=== PATIENT | female | born 1990 | race Caucasian/White ===

== ENCOUNTER → 2016-08-09 | Outpatient (CLI) | payer OTHER ==
[~2016-08-09] MED LIST: IBUP-232 PO; MACR100C2 PO; METR500T10 PO; PARAIUD IL; PREN29TA PO; SENN1TAB PO; SPRI28TA PO
== END ==
LOC: HPND 10:40
PROVIDERS: ATTEND Family Medicine
DX: O35.1XX0 Maternal care for (suspected) chromosomal abnormality in fetus, not applicable or unspecified (principal); Z3A.31 31 weeks gestation of pregnancy
CPT/HCPCS: 76816

== ENCOUNTER → 2016-08-29 | Outpatient (CLI) | payer OTHER ==
[~2016-08-29] MED LIST changes: +CLIN1CAP6 PO
== END ==
LOC: HPND 09:00
PROVIDERS: ATTEND Family Medicine
DX: O36.5930 Maternal care for other known or suspected poor fetal growth, third trimester, not applicable or unspecified (principal); O35.1XX0 Maternal care for (suspected) chromosomal abnormality in fetus, not applicable or unspecified; Z3A.34 34 weeks gestation of pregnancy
CPT/HCPCS: 76816

== ENCOUNTER 2016-08-30 08:03 | Observation (INO) | payer OTHER ==
[2016-08-30] VITALS (21 sets, daily range): BP systolic 101–120; BP diastolic 59–72; PULSE 72–95; RESP 18; TEMP 98–98.7
[~2016-08-30] VITALS: Ht 154.9 cm; Wt 58.0 kg
[~2016-08-30 08:03] MED LIST changes: -CLIN1CAP6 PO; -IBUP-232 PO; -METR500T10 PO; -PARAIUD IL; -PREN29TA PO; -SENN1TAB PO; -SPRI28TA PO
[2016-08-30 09:37] LABS: HEMATOCRIT 29.5 % (35.0-46.0); MEAN CELL VOLUME 85.2 FL (80.0-100.0); MEAN CORPUSCULAR HEMOGLOBIN 28.8 PG (27.0-34.0); MEAN CORPUSCULAR HGB CONC 33.8 % (32.0-36.0); PLATELET COUNT 231 TH/MM3 (150-450); RED BLOOD COUNT 3.46 MIL/MM3 (4.00-5.30); RED CELL DISTRIBUTION WIDTH 14.1 % (11.6-17.2); REVIEW FLAG FINAL; WHITE BLOOD COUNT 14.8 TH/MM3 (4.0-11.0)
[2016-08-30 09:39] LABS: BLOOD, URINE MOD (NEG); GLUCOSE,URINE NEG (NEG); KETONE, URINE NEG (NEG); MUCUS URINE FEW /lpf (OCC); NITRITE,URINE NEG (NEG); SQUAMOUS EPITHELIAL CELL URINE 1 /hpf (0-5); URINE COLOR YELLOW (YELLW/STRAW)
[2016-08-30 09:40] LABS: COMMENT (UR) CULT NOT INDICATED; CULTURE IF INDICATED CULT NOT INDICATED
[2016-08-30 09:46] LABS: AMPHETAMINE, URINE NEG (NEG); BARBITURATES, URINE NEG (NEG); COCAINE, URINE NEG (NEG)
[2016-08-30] MEDS ORDERED: SODIUM CHLORIDE 0.9% FLUSH 5 ML FLUSH IVF PRN (10:00)
--- NOTE | 2016-08-30 10:26 | PD ---
HPI Chief Complaint vaginal bleeding Date Seen: Aug 30, 2016 Time Seen: 09:10 (Alex Fonseca MD R1) Travel History International Travel<30 Days: No Contact w/Intl Traveler<30Days: No Known Affected Area: No (Alex Fonseca MD R1) History of Present Illness HPI 26 y/o at 34/6 weeks presents with vaginal bleeding. Sees Dr. Lauren for her OB at [facility]. States last night she had some light vaginal bleeding and occasional contractions. Stated they occurred every 3-5 minutes. Went to bed, then woke up around 0630 went to the bathroom and had a "gush" of bleeding after urinating. Denies a gush of fluids. Having occasional contractions this morning, with some cramping, but none since arrival to ED. States the blood is bright red, now darker. Since arrival, has had just some spotting. No sexual intercourse for 2 weeks. No recent trauma/falls. Complains of some mid-lower back pain. Endorses movement. Denies lightheadedness/dizziness, chest pain , SOB, abdominal pain, changes in vision, leg pain/swelling. Early on in this , had subchorionic hemorrhage and had vaginal bleeding for 7 weeks. Since then, no complications with this . Did have an ultrasound yesterday to "check on the weight" per patient. No history of placental previa on previous ultrasounds. Para: 3 : 4 (Alex Fonseca MD R1) History Past Medical History Medical History: Denies Significant Hx (Alxe Fonseca MD R1) Narrative Medical Rh+, posterior placenta confirmed on prior ultrasound (no previa or low-lying) w/ vag del, then Csection, then successful . 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 (Marita Chan MD) Obstetric History Obstetric History 1) , term 2) for distress 3) , term (Alex Fonseca MD R1) Past Surgical History Narrative Surgical scalp reconstruction (Alex Fonseca MD R1) Family History Family History: Negative (Alex Fonseca MD R1) Social History Narrative Social History Smoked early on in , stopped in February No alcohol use No illicit drug use (Alex Fonseca MD R1) Allergies-Medications (Allergen,Severity, Reaction): Coded Allergies: *MDRO Multi-Drug Resistant Organism (Verified Adverse Reaction, Unknown, ) 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 Home Meds Active Scripts Nitrofurantoin Monohydrate Macrocrystals (Macrobid)100 Mg [id number] Mg PO BID #14 CAP Ref 0 Prov:Lukasz Lauren MD R2 08/24/16 Review of Systems General / Constitutional: Weight Gain, No: Fever, Weight Loss, Chills Eyes: No: Blurred Vision, Visual changes HENT: No: Headaches, Vertigo Cardiovascular: No: Irregular Rhythm, Chest Pain or Discomfort, Palpitations, Tachycardia Respiratory: No: Cough, Short of Breath Gastrointestinal: No: Nausea, Vomiting, Diarrhea, Abdominal Pain, Constipation Genitourinary: Vaginal Bleeding, No: Urgency, Frequency, Dysuria, Nocturia, Oliguria, Pelvic Pain, Discharge Musculoskeletal: No: Limited ROM, Weakness Skin: No Rash, No Itching Neurologic: No: Weakness, Dizziness Psychiatric: No: Anxiety, Depression Endocrine: No: Heat Intolerance, Cold Intolerance Hematologic/Lymphatic: No Easy Bruising, No Lymph Node Enlargement (Alex Fonseca MD R1) Physical Exam Narrative GENERAL: Well-nourished, well-developed patient. SKIN: Warm and dry. HEAD: Normocephalic and atraumatic. EYES: No scleral icterus. No injection or drainage. ENT: No nasal drainage noted. Mucous membranes pink. Airway patent. NECK: Supple, trachea midline. No JVD. CARDIOVASCULAR: Regular rate and rhythm without murmurs, gallops, or rubs. RESPIRATORY: Breath sounds equal bilaterally. No accessory muscle use. ABDOMEN/GI: Abdomen soft, non-tender, bowel sounds present, no rebound, no guarding Gravid to 34 weeks size Fundal Height: 34 GENITOURINARY: External Genitalia: intact and normal in appearance Cervix: soft, non-friable Dilatation: 0 Effacement: 0 Station: -2 Presentation: vertex Membranes: intact Uterine Contractions:q5-10 minutes FHT's: Category: 1 Baseline: 140 Reactive: yes Variability: minimal Decels: none EXTREMITIES: No cyanosis or edema. BACK: Nontender without obvious deformity. No CVA tenderness. NEUROLOGICAL: Awake and alert. Motor and sensory grossly within normal limits. Five out of 5 muscle strength in all muscle groups. Normal speech. (Alex Fonseca MD R1) Narrative Appropriate interactions noted between patient and father of baby. Skin warm and dry, good turgor without bruising or discoloration Abdomen soft gravid c/w 34 weeks gestation. No tenderness or guarding. Vertex presentation appreciated Sterile spec exam : Cervix is visibly closed with dark mucousy blood at os opening, and small amount dark blood high in vaginal vault. No visible polyps cervical lesions or vaginal wall lesions. No obvious pooling of fluid. No unusual odor. Speculum removed, GBS culture obtained. (Marita Chan MD) Data Data Vital Signs Reviewed: Yes Orders Vital Signs (Adult) .ON ADMISSION (08/30/16 09:02) ^ Labor Status (08/30/16 09:02) Urinalysis - C+S If Indicated (08/30/16 09:02) ^ Non Stress Test (08/30/16 09:02) Cbc No Diff, Includes Plts (08/30/16 09:02) Group B Beta Strep Scrn (Gbs) (08/30/16 09:02) Pamg-1 Test .ONCE (08/30/16 09:02) Ob/Psych Drug Screen, Urine (08/30/16 09:02) Us Ob Bpp Wo Nst (08/30/16 09:02) Gc And Chlamydia Pcr (08/30/16 09:47) Type And Screen (08/30/16 09:47) Ur Bath Salts (08/30/16 08:28) Ur Heroin (08/30/16 08:28) Ur K2 Spice (08/30/16 08:28) Ur Ecstasy (08/30/16 08:28) Ur Methadone (08/30/16 08:28) Phencyclidine Urine (Pcp) (08/30/16 08:28) Place In Observation (08/30/16 ) Diet Liquid (08/30/16 Breakfast) Vital Signs (Adult) [id number] AWAKE (08/30/16 09:48) ^ Heart (08/30/16 09:48) Activity Bed Rest With Brp (08/30/16 09:48) Lactated Ringer's 1000 Ml Inj (Lr 1000 M (08/30/16 09:48) Sodium Chloride 0.9% Flush (Ns Flush) (08/30/16 21:00) Sodium Chloride 0.9% Flush (Ns Flush) (08/30/16 10:00) Labs Laboratory Tests Test 08/30/16 08/30/16 08:28 09:20 Urine Color YELLOW Urine Turbidity CLEAR Urine pH 6.0 Urine Specific [place] 1.012 Urine Protein NEG Urine Glucose (UA) NEG Urine Ketones NEG Urine Occult Blood MOD Urine Nitrite NEG Urine Bilirubin NEG Urine Urobilinogen 2.0 Urine Leukocyte Esterase NEG Urine WBC 3 Urine Squamous Epithelial 1 Cells Urine Mucus FEW Microscopic Urinalysis Comment CULT NOT INDICATED Urine Opiates Screen NEG Urine Barbiturates Screen NEG Urine Amphetamines Screen NEG Urine Benzodiazepines Screen NEG Urine Cocaine Screen NEG Urine Cannabinoids Screen NEG White Blood Count 14.8 Red Blood Count 3.46 Hemoglobin 10.0 Hematocrit 29.5 Mean Corpuscular Volume 85.2 Mean Corpuscular Hemoglobin 28.8 Mean Corpuscular Hemoglobin 33.8 Concent Red Cell Distribution Width 14.1 Platelet Count 231 Mean Platelet Volume 8.5 (Alex Fonseca MD R1) Vital Signs Reviewed: Yes (Marita Chan MD) MDM Medical Record Reviewed: Yes Interpretation(s) 26 y/o at 34/6 weeks presents with vaginal bleeding DDx: labor, infection, placental abruption, placenta increta/accreta, vasa previa Category 1 FHT Vitals stable Plan - Sterile speculum exam - Continuous FHT - CBC, UA, UDS - GC/CH urine - GBS testing - Type and screen - Ultrasound with BPP Narrative Course / MDM Speculum exam: Dark blood coming from cervical os. No pooling of blood or fluid. No signs of infection/laceration Unable to test fibronectin or amnisure due to blood Ultrasound: BPP 8/8. SUNNI 12.9 (15.1 yesterday). No evidence of placenta abruption. Category 1 FHT CBC: Hb 10, UA negative. UDS pending. GC/CH pending. Plan - Admit to observation - Continuous FHT - Monitor vitals - Clear liquid diet - Bed rest - LR @ 100mls/hr (Alex Fonseca MD R1) Medical Record Reviewed: Yes Attending Attestation Patient seen and examined THIS CASE WAS DISCUSSED WITH Dr Debbie Fonseca. I HAVE REVIEWED THE RECORD AND AGREE WITH THE ABOVE NOTE AND PLAN OF CARE WAS DISCUSSED. I HAVE AUTHORIZED THE ORDER FOR PLACEMENT IN OUT-PATIENT OBSERVATION STATUS. (Marita Chan MD) Diagnosis Diagnosis: Primary Impression: Vaginal bleeding during , antepartum Additional Impression: 34 weeks gestation of Alex Fonseca MD R1 Aug 30, 2016 10:25 Marita Chan MD Aug 30, 2016 10:52
--- NOTE | 2016-08-30 10:31 | HHI.HP ---
History & Physical H&P HPI Chief Complaint vaginal bleeding Date Seen: Aug 30, 2016 Time Seen: 09:10 Travel History International Travel<30 Days: No Contact w/Intl Traveler<30Days: No Known Affected Area: No History of Present Illness HPI 26 y/o at 34/6 weeks presents with vaginal bleeding. Sees Dr. Lauren for her OB at [facility]. States last night she had some light vaginal bleeding and occasional contractions. Stated they occurred every 3-5 minutes. Went to bed, then woke up around 0630 went to the bathroom and had a "gush" of bleeding after urinating. Denies a gush of fluids. Having occasional contractions this morning, with some cramping, but none since arrival to ED. States the blood is bright red, now darker. Since arrival, has had just some spotting. No sexual intercourse for 2 weeks. No recent trauma/falls. Complains of some mid-lower back pain. Endorses movement. Denies lightheadedness/dizziness, chest pain , SOB, abdominal pain, changes in vision, leg pain/swelling. Early on in this , had subchorionic hemorrhage and had vaginal bleeding for 7 weeks. Since then, no complications with this . Did have an ultrasound yesterday to "check on the weight" per patient. No history of placental previa on previous ultrasounds. Para: 3 : 4 History (Limited) History Past Medical History Medical History: Denies Significant Hx Obstetric History Obstetric History 1) , term 2) for distress 3) , term Past Surgical History Narrative Surgical scalp reconstruction Family History Family History: Negative Social History Narrative Social History Smoked early on in , stopped in February No alcohol use No illicit drug use Allergies-Medications Allergies-Medications (Allergen,Severity, Reaction): Coded Allergies: *MDRO Multi-Drug Resistant Organism (Verified Adverse Reaction, Unknown, ) MRSA (wound) - 2011 & 2012 Home Meds Active Scripts Nitrofurantoin Monohydrate Macrocrystals (Macrobid)100 Mg [id number] Mg PO BID #14 CAP Ref 0 Prov:Lukasz Lauren MD R2 08/24/16 ROS Review of Systems General / Constitutional: Weight Gain, No: Fever, Weight Loss, Chills Eyes: No: Blurred Vision, Visual changes HENT: No: Headaches, Vertigo Cardiovascular: No: Irregular Rhythm, Chest Pain or Discomfort, Palpitations, Tachycardia Respiratory: No: Cough, Short of Breath Gastrointestinal: No: Nausea, Vomiting, Diarrhea, Abdominal Pain, Constipation Genitourinary: Vaginal Bleeding, No: Urgency, Frequency, Dysuria, Nocturia, Oliguria, Pelvic Pain, Discharge Musculoskeletal: No: Limited ROM, Weakness Skin: No Rash, No Itching Neurologic: No: Weakness, Dizziness Psychiatric: No: Anxiety, Depression Endocrine: No: Heat Intolerance, Cold Intolerance Hematologic/Lymphatic: No Easy Bruising, No Lymph Node Enlargement Physical Exam Physical Exam Narrative GENERAL: Well-nourished, well-developed patient. SKIN: Warm and dry. HEAD: Normocephalic and atraumatic. EYES: No scleral icterus. No injection or drainage. ENT: No nasal drainage noted. Mucous membranes pink. Airway patent. NECK: Supple, trachea midline. No JVD. CARDIOVASCULAR: Regular rate and rhythm without murmurs, gallops, or rubs. RESPIRATORY: Breath sounds equal bilaterally. No accessory muscle use. ABDOMEN/GI: Abdomen soft, non-tender, bowel sounds present, no rebound, no guarding Gravid to 34 weeks size Fundal Height: 34 GENITOURINARY: External Genitalia: intact and normal in appearance Cervix: soft, non-friable Dilatation: 0 Effacement: 0 Station: -2 Presentation: vertex Membranes: intact Uterine Contractions:q5-10 minutes FHT's: Category: 1 Baseline: 140 Reactive: yes Variability: minimal Decels: none EXTREMITIES: No cyanosis or edema. BACK: Nontender without obvious deformity. No CVA tenderness. NEUROLOGICAL: Awake and alert. Motor and sensory grossly within normal limits. Five out of 5 muscle strength in all muscle groups. Normal speech. Data Data Data Vital Signs Reviewed: Yes Orders Vital Signs (Adult) .ON ADMISSION (08/30/16 09:02) ^ Labor Status (08/30/16 09:02) Urinalysis - C+S If Indicated (08/30/16 09:02) ^ Non Stress Test (08/30/16 09:02) Cbc No Diff, Includes Plts (08/30/16 09:02) Group B Beta Strep Scrn (Gbs) (08/30/16 09:02) Pamg-1 Test .ONCE (08/30/16 09:02) Ob/Psych Drug Screen, Urine (08/30/16 09:02) Us Ob Bpp Wo Nst (08/30/16 09:02) Gc And Chlamydia Pcr (08/30/16 09:47) Type And Screen (08/30/16 09:47) Ur Bath Salts (08/30/16 08:28) Ur Heroin (08/30/16 08:28) Ur K2 Spice (08/30/16 08:28) Ur Ecstasy (08/30/16 08:28) Ur Methadone (08/30/16 08:28) Phencyclidine Urine (Pcp) (08/30/16 08:28) Place In Observation (08/30/16 ) Diet Liquid (08/30/16 Breakfast) Vital Signs (Adult) [id number] AWAKE (08/30/16 09:48) ^ Heart (08/30/16 09:48) Activity Bed Rest With Brp (08/30/16 09:48) Lactated Ringer's 1000 Ml Inj (Lr 1000 M (08/30/16 09:48) Sodium Chloride 0.9% Flush (Ns Flush) (08/30/16 21:00) Sodium Chloride 0.9% Flush (Ns Flush) (08/30/16 10:00) Labs Laboratory Tests Test 08/30/16 08/30/16 08:28 09:20 Urine Color YELLOW Urine Turbidity CLEAR Urine pH 6.0 Urine Specific [place] 1.012 Urine Protein NEG Urine Glucose (UA) NEG Urine Ketones NEG Urine Occult Blood MOD Urine Nitrite NEG Urine Bilirubin NEG Urine Urobilinogen 2.0 Urine Leukocyte Esterase NEG Urine WBC 3 Urine Squamous Epithelial 1 Cells Urine Mucus FEW Microscopic Urinalysis Comment CULT NOT INDICATED Urine Opiates Screen NEG Urine Barbiturates Screen NEG Urine Amphetamines Screen NEG Urine Benzodiazepines Screen NEG Urine Cocaine Screen NEG Urine Cannabinoids Screen NEG White Blood Count 14.8 Red Blood Count 3.46 Hemoglobin 10.0 Hematocrit 29.5 Mean Corpuscular Volume 85.2 Mean Corpuscular Hemoglobin 28.8 Mean Corpuscular Hemoglobin 33.8 Concent Red Cell Distribution Width 14.1 Platelet Count 231 Mean Platelet Volume 8.5 MDM MDM Medical Record Reviewed: Yes Interpretation(s) 26 y/o at 34/6 weeks presents with vaginal bleeding DDx: labor, infection, placental abruption, placenta increta/accreta, vasa previa Category 1 FHT Vitals stable Plan - Sterile speculum exam - Continuous FHT - CBC, UA, UDS - GC/CH urine - GBS testing - Type and screen - Ultrasound with BPP Narrative Course / MDM Speculum exam: Dark blood coming from cervical os. No pooling of blood or fluid. No signs of infection/laceration Unable to test fibronectin or amnisure due to blood Ultrasound: BPP 8/8. SUNNI 12.9 (15.1 yesterday). No evidence of placenta abruption. Category 1 FHT CBC: Hb 10, UA negative. UDS pending. GC/CH pending. Plan - Admit to observation - Continuous FHT - Monitor vitals - Clear liquid diet - Bed rest - LR @ 100mls/hr Diagnosis Diagnosis: Primary Impression: Vaginal bleeding during , antepartum Additional Impression: 34 weeks gestation of (Alex Fonseca MD R1) H&P Pt seen and examined. see my additional comments from triage note. H&P reviewed , CASE WAS DISCUSSED WITH THE RESIDENT PHYSICIAN. I HAVE REVIEWED THE RECORD AND AGREE WITH THE ABOVE NOTE AND PLAN OF CARE WAS DISCUSSED. I HAVE AUTHORIZED THE ORDER FOR PLACEMENT IN OUT-PATIENT OBSERVATION STATUS. (Marita Chan MD) Alex Fonseca MD R1 Aug 30, 2016 10:31 Marita Chan MD Aug 30, 2016 11:02
[2016-08-30] MEDS ORDERED: TERBUTALINE INJ 1 MG/ML AMP ONE (10:50)
[2016-08-30] MEDS ORDERED: TERBUTALINE INJ 1 MG/ML AMP SQ PRN (11:00)
[2016-08-30] MEDS: LACTATED RINGER'S 1000 ML INJ 1,000 ML IV SCH ×2 (11:11→20:09)
--- NOTE | 2016-08-30 13:12 | PD.OB.ANTE ---
Subjective Diagnosis: (1) Intrauterine (2) 34 weeks gestation of (3) Vaginal bleeding during , antepartum Interval History Patient seen and examined. She reports that she is feeling a lot better since being in the hospital. She thinks that the fluids and the medicine has helped her a lot. She says that she is no longer feeling any contractions at this time. She still feels that baby moving, though thinks it is slightly less then the usual amount. She is uncertain if she is still bleeding at this time. Overall she is feeling better and understands that the plan is for her to be observed for 24 hours for any further contractions. (Lukasz Lauren MD R2) Objective Lab & Micro Results Test 08/30/16 08/30/16 08:28 09:20 Urine Color YELLOW Urine Turbidity CLEAR Urine pH 6.0 Urine Specific [place] 1.012 Urine Protein NEG mg/dL Urine Glucose (UA) NEG mg/dL Urine Ketones NEG mg/dL Urine Occult Blood MOD Urine Nitrite NEG Urine Bilirubin NEG Urine Urobilinogen 2.0 MG/DL Urine Leukocyte Esterase NEG Urine WBC 3 /hpf Urine Squamous Epithelial 1 /hpf Cells Urine Mucus FEW /lpf Microscopic Urinalysis Comment CULT NOT INDICATED Urine Opiates Screen NEG Urine Barbiturates Screen NEG Urine Amphetamines Screen NEG Urine Benzodiazepines Screen NEG Urine Cocaine Screen NEG Urine Cannabinoids Screen NEG White Blood Count 14.8 TH/MM3 Red Blood Count 3.46 MIL/MM3 Hemoglobin 10.0 GM/DL Hematocrit 29.5 % Mean Corpuscular Volume 85.2 FL Mean Corpuscular Hemoglobin 28.8 PG Mean Corpuscular Hemoglobin 33.8 % Concent Red Cell Distribution Width 14.1 % Platelet Count 231 TH/MM3 Mean Platelet Volume 8.5 FL Blood Type A POSITIVE Antibody Screen NEGATIVE Date/Time Procedure Status Source Growth 08/30/16 12:42 MRSA Surveillance Culture Received Nasopharyngeal Pending 08/30/16 09:35 Group B Streptococcus Screen Received Genital Genital Region Pending Physical Exam GENERAL: Well-nourished, well-developed patient. SKIN: Warm and dry. HEAD: Normocephalic and atraumatic. EYES: No scleral icterus. No injection or drainage. ENT: No nasal drainage noted. Mucous membranes pink. Airway patent. NECK: Supple, trachea midline. No JVD. CARDIOVASCULAR: Regular rate and rhythm without murmurs, gallops, or rubs. RESPIRATORY: Breath sounds equal bilaterally. No accessory muscle use. ABDOMEN/GI: Abdomen soft, non-tender, bowel sounds present, no rebound, no guarding Gravid to 34 weeks size Fundal Height: 34 FHT's: Category: 1 Baseline: 140 Reactive: up to 155 Variability: moderate Decels: none EXTREMITIES: No cyanosis or edema. BACK: Nontender without obvious deformity. No CVA tenderness. NEUROLOGICAL: Awake and alert. Motor and sensory grossly within normal limits. Five out of 5 muscle strength in all muscle groups. Normal speech. (Lukasz Lauren MD R2) Physical Exam Spec exam per intake /triage note. No digital cervical exam has been performed on this pt (Marita Chan MD) Assessment and Plan Problem List: (1) Intrauterine Status: Acute (2) 34 weeks gestation of Status: Acute (3) Vaginal bleeding during , antepartum Status: Acute Assessment and Plan 26 y/o at 34/6 weeks presents with vaginal bleeding DDx: labor, infection, placental abruption, placenta increta/accreta, vasa previa Category 1 FHT Vitals stable Plan: - Admit to observation - Continuous FHT - Monitor vitals - Clear liquid diet - Bed rest - Terbutaline per protocol - LR @ 100mls/hr : Discussed with the patient about her wishes to perform a vaginal after . Explained to her that she is at risk for increase bleeding with , and subsequently at an increase risk to her life. She has had one previous delivery in the past and it was a successful delivery. She understands the risks to her and to her baby by performing a and she still desires to have a vaginal delivery at this time. -Plan for vaginal delivery at the time of labor I appreciate the OB Teams help with management of the patient (Lukasz Lauren MD R2) Assessment and Plan Patient seen and examined. Successful interval resolution of cntx w/ 1dose terbutaline. Case d/w OBH d/t status. Additionally reviewed current Plan of Care, we will not proceed w/ alternate tocolytics should pt's contx resume. Cont IVF, monitoring. Case reviewed and discussed with the resident team. Agree with plan of care as discussed with me and documented in the resident note . (Marita Chan MD) Lukasz Lauren MD R2 Aug 30, 2016 13:12 Marita Chan MD Aug 30, 2016 14:13 terbutaline. Case d/w OBH d/t status. Additionally reviewed current Plan of Care, we will not proceed w/ alternate tocolytics should pt's contx resume. Cont IVF, monitoring. Case reviewed and discussed with the resident team. Agree with plan of care as discussed with me and documented in the resident note . (Marita Chan MD) Lukasz Lauren MD R2 Aug 30, 2016 13:12 Marita Chan MD Aug 30, 2016 14:13
[2016-08-30 13:16] LABS: CHLAMYDIA PCR NOT DETECTED (NOT DETECT); NEISSERIA PCR NOT DETECTED (NOT DETECT)
[2016-08-30 13:57] LABS: ALT (GPT) 11 U/L (10-53); ANION GAP 10 MEQ/L (5-15); AST (GOT) 9 U/L (15-37); BICARBONATE 25.6 MEQ/L (21.0-32.0); BLOOD UREA NITROGEN 4 MG/DL (7-18); CHLORIDE 105 MEQ/L (98-107); GLOMERULAR FILTRATION RATE 184 ML/MIN (>89); POTASSIUM 3.1 MEQ/L (3.5-5.1); SODIUM (NA) 141 MEQ/L (136-145)
[2016-08-30 13:59] LABS: ALKALINE PHOSPHATASE 114 U/L (45-117); TOTAL BILIRUBIN ADULT 0.3 MG/DL (0.2-1.0)
[2016-08-30 14:17] LABS: RUBELLA STATUS IMMUNE (IMMUNE)
[2016-08-30] MEDS ORDERED: NIFEdipine 20 MG CAP PO ONE (19:00)
[2016-08-30] MEDS ORDERED: BETAMETHASONE SOD PHOS/ACETATE SUSP 30 MG/5 ML VIAL IM SCH (19:00)
[2016-08-30] MEDS ORDERED: SODIUM CHLORIDE 0.9% FLUSH 5 ML FLUSH IVF SCH (21:00)
[2016-08-31] MEDS ORDERED: NIFEdipine 10 MG CAP PO SCH
[2016-08-31 01:09] VITALS: RESP 16
[2016-08-31 05:37] VITALS: RESP 18
--- NOTE | 2016-08-31 08:41 | PD.OB.ANTE ---
Subjective Diagnosis: (1) Intrauterine Diagnosis: Principal (2) 34 weeks gestation of Diagnosis: Principal (3) Vaginal bleeding during , antepartum Diagnosis: Principal Interval History Patient seen and examined this morning. No complaints/concerns this morning. Did well overnight. Endorses occasional contractions, not as regular as yesterday. Antepartum ROS: Reports: Contractions, Denies: New complaints, Loss of fluid, Vaginal bleeding, movement normal, Other (Alex Fonseca MD R1) Objective Vital Signs Vital Signs Date Time Temp Pulse Resp B/P Pulse Ox O2 Delivery O2 Flow Rate FiO2 08/31/16 05:37 18 08/31/16 01:09 16 08/30/16 19:41 98.7 18 08/30/16 19:39 72 101/59 08/30/16 17:45 98.7 18 08/30/16 17:45 72 101/59 08/30/16 13:21 98.0 80 109/62 08/30/16 13:20 90 08/30/16 13:15 77 08/30/16 13:10 82 08/30/16 13:05 91 08/30/16 13:00 89 08/30/16 12:00 18 08/30/16 11:55 95 08/30/16 11:50 90 08/30/16 11:45 88 08/30/16 11:30 18 08/30/16 11:26 86 120/72 08/30/16 11:25 83 08/30/16 11:20 83 08/30/16 11:15 83 08/30/16 10:55 75 08/30/16 10:50 75 08/30/16 10:45 74 Lab & Micro Results Test 08/30/16 08/30/16 08/30/16 08/30/16 09:20 09:35 11:25 12:45 White Blood Count 14.8 TH/MM3 Red Blood Count 3.46 MIL/MM3 Hemoglobin 10.0 GM/DL Hematocrit 29.5 % Mean Corpuscular Volume 85.2 FL Mean Corpuscular Hemoglobin 28.8 PG Mean Corpuscular Hemoglobin 33.8 % Concent Red Cell Distribution Width 14.1 % Platelet Count 231 TH/MM3 Mean Platelet Volume 8.5 FL Blood Type A POSITIVE Antibody Screen NEGATIVE Group B Streptococcus (PCR) NEGATIVE Nasal Screen MRSA (PCR) NEGATIVE Sodium Level 141 MEQ/L Potassium Level 3.1 MEQ/L Chloride Level 105 MEQ/L Carbon Dioxide Level 25.6 MEQ/L Anion Gap 10 MEQ/L Blood Urea Nitrogen 4 MG/DL Creatinine 0.42 MG/DL Estimat Glomerular Filtration 184 ML/MIN Rate Random Glucose 75 MG/DL Calcium Level 8.4 MG/DL Total Bilirubin 0.3 MG/DL Aspartate Amino Transf 9 U/L (AST/SGOT) Alanine Aminotransferase 11 U/L (ALT/SGPT) Alkaline Phosphatase 114 U/L Total Protein 5.9 GM/DL Albumin 2.4 GM/DL Rubella Immunity Screen IMMUNE Rubella Antibody, Quantitative 18.0 IU/mL Date/Time Procedure Status Source Growth 08/30/16 12:42 Cancelled Nasopharyngeal 08/30/16 09:35 Group B Streptococcus Screen Received Genital Genital Region Pending 08/30/16 09:35 Cancelled Genital Genital Region Physical Exam GENERAL: Well-nourished, well-developed patient. CARDIOVASCULAR: Regular rate and rhythm without murmurs, gallops, or rubs. RESPIRATORY: Breath sounds equal bilaterally. No accessory muscle use. ABDOMEN/GI: Abdomen soft, non-tender. Gravid to 35 weeks GENITOURINARY: External Genitalia: intact and normal in appearance Dilatation: 2 Effacement: 50 Station: -2 Presentation: vertex Membranes: intact Uterine Contractions: q12-15 minutes FHT's: Category: 1 Baseline: 135 Reactive: yes Variability: moderate Decels: none EXTREMITIES: No cyanosis or edema, non-tender, without signs of DVT. (Alex Fonseca MD R1) Assessment and Plan Problem List: (1) Intrauterine Status: Acute (2) 34 weeks gestation of Status: Acute (3) Vaginal bleeding during , antepartum Status: Acute Assessment and Plan 26 y/o at 35/0 weeks with vaginal bleeding and contractions Category 1 FHT Vitals stable Cervical exam: no progress since yesterday Given dose of betamethasone overnight Plan: - Will give another dose of betamethasone at noon - Then discharge home, patient is stable and not making progress - Return to ED if worsening symptoms or signs of labor (Alex Fonseca MD R1) Attestation Patient seen and examined with the resident under direct supervision agree with the assessment and plan. (Zachary Victoria MD) Alex Fonseca MD R1 Aug 31, 2016 08:41 Zachary Victoria MD Sep 02, 2016 11:27
--- NOTE | 2016-08-31 09:23 | HHI.DCPOC ---
Discharge Care Plan Diagnosis: (1) 34 weeks gestation of (2) Vaginal bleeding during , antepartum Goals to Promote Your Health * To prevent worsening of your condition and complications * To maintain your health at the optimal level Directions to Meet Your Goals Take your medications as prescribed Follow your dietary instruction Follow activity as directed Keep your appointments as scheduled Take your immunizations and boosters as scheduled If your symptoms worsen call your PCP, if no PCP go to Urgent Care Center or Emergency Room Smoking is Dangerous to Your Health. Avoid second hand smoke Call the 24-hour hour crisis hotline for domestic abuse at Attestation Patient seen and examined with the resident under direct supervision, I agree with the assessment and plan. Alex Fonseca MD R1 Aug 31, 2016 09:23 Zachary Victoria MD Sep 02, 2016 11:30
[2016-08-31] MEDS ORDERED: BETAMETHASONE SOD PHOS/ACETATE SUSP 30 MG/5 ML VIAL IM ONE (12:05)
[2016-08-31 14:21] LABS: RAPID PLASMA REAGIN SCREEN NON-REACTIVE (NON-REACTVE)
[2016-09-02 06:46] LABS: BATH SALTS (MDPV) UR NEG (NEG); ECSTASY (MDMA) UR NEG (NEG); HEROIN (6-ACETYLMORPHINE) UR NEG (NEG); K2 SPICE UR NEG (NEG); OBMETHADONE UR NEG (NEG); OXYCODONE (PERCODAN) NEG (NEG); PHENCYCLIDINE URINE NEG (NEG)
[2016-10-26] MEDS ORDERED: SPRI28TA PO (15:13)
[2017-01-06] MEDS ORDERED: PARAIUD IL (14:46)
[2017-01-30] MEDS ORDERED: METR500T10 PO (15:40)
[2017-02-01] MEDS ORDERED: CLIN1CAP6 PO (12:11)
== END 2016-08-31 12:09 | disposition home or self-care (01) ==
LOC: HOBED 08:03 → H2EA 10:12
PROVIDERS: ADMIT Family Medicine; ATTEND Family Medicine
DX: O46.93 Antepartum hemorrhage, unspecified, third trimester (principal); O99.019 Anemia complicating pregnancy, unspecified trimester; D64.9 Anemia, unspecified; O20.9 Hemorrhage in early pregnancy, unspecified; Z3A.34 34 weeks gestation of pregnancy
CPT/HCPCS: 36415; 59025; 76819; 80053; 80074; 80307; 81001; 85027; 86592; 86703; 86762; 86850; 86900; 86901; 87081; 87150; 87491; 87591; 87641; 99285; G0378; G0481; J0702; J3105; J7120

== ENCOUNTER 2016-09-15 22:23 | Inpatient (IN) | payer OTHER ==
[~2016-09-15] VITALS: Ht 154.9 cm; Wt 59.0 kg
[2016-09-15 22:43] VITALS: BP 117/71; PULSE 90; TEMP 98.7
[2016-09-15] MEDS ORDERED: LACTATED RINGER'S 1000 ML INJ 1,000 ML IV PRN (23:02)
[2016-09-15] MEDS ORDERED: CITRIC ACID-SODIUM CITRATE LIQ 30 ML UDC PO SCH (23:15)
[2016-09-15] MEDS ORDERED: LIDOCAINE HCL 1% 50 ML VIAL INFIL PRN (23:15)
[2016-09-15] MEDS ORDERED: SODIUM CHLORID 0.9% 500 ML INJ 500 ML IV PRN (23:15)
[2016-09-15] MEDS ORDERED: LIDOCAINE HCL 1% 50 ML VIAL I-DERMAL PRN (23:15)
[2016-09-15] MEDS ORDERED: MINERAL OIL 10 ML VIAL TOPICAL PRN (23:15)
[2016-09-15] MEDS ORDERED: ONDANSETRON HCL 4 MG/2 ML VIAL IV PRN (23:15)
[2016-09-15] MEDS ORDERED: OXYTOCIN 30 UNITS-500ML PREMIX 500 ML IV ONE (23:15)
--- NOTE | 2016-09-15 23:18 | PD ---
HPI Date Seen: Sep 15, 2016 Time Seen: 22:50 Travel History International Travel<30 Days: No Contact w/Intl Traveler<30Days: No Known Affected Area: No History of Present Illness HPI 26-year-old at 37/1 weeks gestation by 12 week ultrasound presenting with spontaneous rupture of membranes occurring at 2130. She also noticed some light vaginal bleeding. She fell contractions at 1100 today lasting about 1 minute each space woman apart for total of 30 minutes, and since then she has not had very strong contractions. Good movement. She denies chest pains, shortness of breath, fevers, chills, headaches, vision changes, dysuria. This was complicated by subchorionic hemorrhage which resolved 07/12/16. No placenta previa noted on ultrasounds. She had visited [facility] OB ED at approx 34 weeks gestation due to labor. At that time tocolytics and betamethasone were given. History Past Medical History Medical History: Denies Significant Hx Obstetric History Obstetric History 2 vaginal deliveries, one C/S. 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 HEAD: Normocephalic and atraumatic. EYES: No scleral icterus. No injection or drainage. ENT: No nasal drainage noted. Mucous membranes pink. Airway patent. NECK: Supple, trachea midline. No JVD. CARDIOVASCULAR: Regular rate and rhythm without murmurs, gallops, or rubs. RESPIRATORY: Breath sounds equal bilaterally. No accessory muscle use. ABDOMEN/GI: Abdomen soft, non-tender, no rebound, no guarding GENITOURINARY: Cervix: Soft, posterior Dilatation: 3 Effacement: 70 Station: -2 Presentation: Vertex Membranes: SROM @ ~2130 Uterine Contractions: Infrequent, irregular FHT's: Category: 1 Baseline: 145 Reactive: N Variability: moderate Decels: N EXTREMITIES: No cyanosis or edema. 2+ DP pulses bilaterally BACK: Nontender without obvious deformity. No CVA tenderness. NEUROLOGICAL: Awake and alert. Motor and sensory grossly within normal limits. Normal speech. Data Data Vital Signs Reviewed: Yes Orders Vital Signs (Adult) .ON ADMISSION (09/15/16 22:38) ^ Labor Status (09/15/16 22:38) ^ Non Stress Test (09/15/16 22:38) ^ Hydration (09/15/16 22:38) Ob (2e) Additional Admit Info (09/15/16 22:47) Admit To Inpatient (09/15/16 ) Code Status (09/15/16 23:02) Vital Signs (Adult) .Per protocol (09/15/16 23:02) Activity Oob Ad Lakeisha (09/15/16 23:02) ^ Heart (09/15/16 23:02) ^ Amnioinfusion (09/15/16 23:02) Urinary Catheter Management .ONCE (09/15/16 23:02) Diet Liquid (09/16/16 Breakfast) Lactated Ringer's 1000 Ml Inj (Lr 1000 M (09/15/16 23:02) Lactated Ringer's 1000 Ml Inj (Lr 1000 M (09/15/16 23:02) Sodium Chlorid 0.9% 500 Ml Inj (Ns 500 M (09/15/16 23:15) Sodium Chlor 0.9% 1000 Ml Inj (Ns 1000 M (09/15/16 23:22) Lidocaine 1% Inj (50 Ml) (Xylocaine 1% I (09/15/16 23:15) Citric Acid-Sodium Citrate Liq (Bicitra (09/15/16 23:15) Ondansetron Inj (Zofran Inj) (09/15/16 23:15) Fentanyl Inj (Fentanyl Inj) (09/15/16 23:15) Fentanyl Inj (Fentanyl Inj) (09/15/16 23:15) Complete Blood Count With Diff (09/15/16 23:02) Hold Clot (09/15/16 23:02) Abo/Rh Blood Type (09/15/16 23:02) Urinalysis - C+S If Indicated (2/9/17 23:02) Resp Oxygen Non Rebreathe Mask (09/15/16 ) ^ Epidural / Intrathecal Infus (09/15/16 23:02) Oxytocin 30 Units-500ml Premix (Pitocin (09/15/16 23:15) Lidocaine 1% Inj (50 Ml) (Xylocaine 1% I (09/15/16 23:15) Light Mineral Oil (Muri-Lube Oil) (09/15/16 23:15) Inpatient Certification (09/15/16 ) Specimen To Be Collected PRN (09/15/16 23:02) Pamg-1 Test .ONCE (09/15/16 23:06) MDM Medical Record Reviewed: Yes Interpretation(s) 26-year-old G for P3 at 37/1 weeks gestation presenting with: Narrative Course / MDM #1 IUP Category 1 tracing, reassuring * Monitor heart rate #2 GBS negative No need for intrapartum antibiotic prophylaxis #3 SROM SROM occurring at 2131 09/15/16 Amnisure Positive * Manage as below #4 Normal labor Cervix 3 cm, change from 0 cm on 08/30/16 * Admit to labor and delivery * Start Pitocin if contractions not adequate * Monitor vital signs * Cervical checks * Declines epidural; pain control with fentanyl * CBC, UA, BMP sdw Dr. Carolina Serrano wdw Dr. Craig Diagnosis Diagnosis: Primary Impression: Normal labor Scripts No Active Prescriptions or Reported Meds Mike Doty MD R1 Sep 15, 2016 23:18
[2016-09-15 23:22] VITALS: BP 108/63; PULSE 107
[2016-09-15] MEDS ORDERED: SODIUM CHLOR 0.9% 1000 ML INJ 1,000 ML IV PRN (23:22)
--- NOTE | 2016-09-15 23:29 | HHI.HP ---
History & Physical H&P HPI HPI Date Seen: Sep 15, 2016 Time Seen: 22:50 Travel History International Travel<30 Days: No Contact w/Intl Traveler<30Days: No Known Affected Area: No History of Present Illness HPI 26-year-old at 37/1 weeks gestation by 12 week ultrasound presenting with spontaneous rupture of membranes occurring at 2130. She also noticed some light vaginal bleeding. She fell contractions at 1100 today lasting about 1 minute each space woman apart for total of 30 minutes, and since then she has not had very strong contractions. Good movement. She denies chest pains, shortness of breath, fevers, chills, headaches, vision changes, dysuria. This was complicated by subchorionic hemorrhage which resolved 07/12/16. No placenta previa noted on ultrasounds. She had visited [facility] OB ED at approx 34 weeks gestation due to labor. At that time tocolytics and betamethasone were given. History (Limited) History Past Medical History Medical History: Denies Significant Hx Obstetric History Obstetric History 2 vaginal deliveries, one C/S. 2nd vaginal delivery was after C/S Past Surgical History Narrative Surgical Age 8 repair of scalp w/ flap Family History Narrative Family History GM has GERD Social History Alcohol Use: No Tobacco Use: No (Quit 03/17/15; smoked for 1 year) Substance Abuse: No Allergies-Medications Allergies-Medications (Allergen,Severity, Reaction): Coded Allergies: *MDRO Multi-Drug Resistant Organism (Verified Adverse Reaction, Unknown, ) MRSA (wound) - 2011 & 2012 Home Meds No Active Prescriptions or Reported Meds ROS Review of Systems Physical Exam Physical Exam Narrative GENERAL: Well-nourished, well-developed adult female resting comfortably in bed in [facility] SKIN: Warm and dry. HEAD: Normocephalic and atraumatic. EYES: No scleral icterus. No injection or drainage. ENT: No nasal drainage noted. Mucous membranes pink. Airway patent. NECK: Supple, trachea midline. No JVD. CARDIOVASCULAR: Regular rate and rhythm without murmurs, gallops, or rubs. RESPIRATORY: Breath sounds equal bilaterally. No accessory muscle use. ABDOMEN/GI: Abdomen soft, non-tender, no rebound, no guarding GENITOURINARY: Cervix: Soft, posterior Dilatation: 3 Effacement: 70 Station: -2 Presentation: Vertex Membranes: SROM @ ~2130 Uterine Contractions: Infrequent, irregular FHT's: Category: 1 Baseline: 145 Reactive: N Variability: moderate Decels: N EXTREMITIES: No cyanosis or edema. 2+ DP pulses bilaterally BACK: Nontender without obvious deformity. No CVA tenderness. NEUROLOGICAL: Awake and alert. Motor and sensory grossly within normal limits. Normal speech. Data Data Data Vital Signs Reviewed: Yes Orders Vital Signs (Adult) .ON ADMISSION (09/15/16 22:38) ^ Labor Status (09/15/16 22:38) ^ Non Stress Test (09/15/16 22:38) ^ Hydration (09/15/16 22:38) Ob (2e) Additional Admit Info (09/15/16 22:47) Admit To Inpatient (09/15/16 ) Code Status (09/15/16 23:02) Vital Signs (Adult) .Per protocol (09/15/16 23:02) Activity Oob Ad Lakeisha (09/15/16 23:02) ^ Heart (09/15/16 23:02) ^ Amnioinfusion (09/15/16 23:02) Urinary Catheter Management .ONCE (09/15/16 23:02) Diet Liquid (09/16/16 Breakfast) Lactated Ringer's 1000 Ml Inj (Lr 1000 M (09/15/16 23:02) Lactated Ringer's 1000 Ml Inj (Lr 1000 M (09/15/16 23:02) Sodium Chlorid 0.9% 500 Ml Inj (Ns 500 M (09/15/16 23:15) Sodium Chlor 0.9% 1000 Ml Inj (Ns 1000 M (09/15/16 23:22) Lidocaine 1% Inj (50 Ml) (Xylocaine 1% I (09/15/16 23:15) Citric Acid-Sodium Citrate Liq (Bicitra (09/15/16 23:15) Ondansetron Inj (Zofran Inj) (09/15/16 23:15) Fentanyl Inj (Fentanyl Inj) (09/15/16 23:15) Fentanyl Inj (Fentanyl Inj) (09/15/16 23:15) Complete Blood Count With Diff (09/15/16 23:02) Hold Clot (09/15/16 23:02) Abo/Rh Blood Type (09/15/16 23:02) Urinalysis - C+S If Indicated (09/15/16 23:02) Resp Oxygen Non Rebreathe Mask (09/15/16 ) ^ Epidural / Intrathecal Infus (09/15/16 23:02) Oxytocin 30 Units-500ml Premix (Pitocin (09/15/16 23:15) Lidocaine 1% Inj (50 Ml) (Xylocaine 1% I (09/15/16 23:15) Light Mineral Oil (Muri-Lube Oil) (09/15/16 23:15) Inpatient Certification (09/15/16 ) Specimen To Be Collected PRN (09/15/16 23:02) Pamg-1 Test .ONCE (09/15/16 23:06) MDM MDM Medical Record Reviewed: Yes Interpretation(s) 26-year-old G for P3 at 37/1 weeks gestation presenting with: Narrative Course / MDM #1 IUP Category 1 tracing, reassuring * Monitor heart rate #2 GBS negative No need for intrapartum antibiotic prophylaxis #3 SROM SROM occurring at 2131 09/15/16 Amnisure Positive * Manage as below #4 Normal labor Cervix 3 cm, change from 0 cm on 08/30/16 * Admit to labor and delivery * Start Pitocin if contractions not adequate * Monitor vital signs * Cervical checks * Declines epidural; pain control with fentanyl * CBC, UA, BMP sdw Dr. Carolina Serrano wdw Dr. Craig Diagnosis Diagnosis: Primary Impression: Normal labor Scripts No Active Prescriptions or Reported Meds (Mike Doty MD R1) H&P I rounded on the patient. I rounded with the resident. I reviewed the resident' s assessment and plan of care for this patient. I am in agreement with the plan of care for this patient. (Li Rooney MD) Mike Doty MD R1 Sep 15, 2016 23:29 Li Rooney MD Sep 16, 2016 00:20
[2016-09-15 23:30] VITALS: RESP 18; TEMP 98.6
[2016-09-16] VITALS (28 sets, daily range): BP systolic 95–126; BP diastolic 52–81; PULSE 80–116; RESP 16–18; TEMP 97.8–99.2
[2016-09-16 00:07] LABS: AUTOMATED NEUTROPHIL # 10.9 TH/MM3 (1.8-7.7); BASOPHIL # 0.1 TH/MM3 (0-0.2); BASOPHIL % 0.6 % (0.0-2.0); EOSINOPHIL # 0.2 TH/MM3 (0-0.4); EOSINOPHIL % 1.5 % (0.0-4.0); HEMATOCRIT 30.7 % (35.0-46.0); LYMPH % 14.1 % (9.0-44.0); LYMPHOCYTE # 2.1 TH/MM3 (1.0-4.8); MEAN CELL VOLUME 85.9 FL (80.0-100.0); MEAN CORPUSCULAR HEMOGLOBIN 27.6 PG (27.0-34.0); MEAN CORPUSCULAR HGB CONC 32.1 % (32.0-36.0); NEUT % 73.8 % (16.0-70.0); PLATELET COUNT 234 TH/MM3 (150-450); RED BLOOD COUNT 3.57 MIL/MM3 (4.00-5.30); RED CELL DISTRIBUTION WIDTH 14.9 % (11.6-17.2); WHITE BLOOD COUNT 14.8 TH/MM3 (4.0-11.0)
[2016-09-16 00:08] LABS: HEMO FLAGS AUTO DIFF
[2016-09-16 00:12] LABS: BLOOD, URINE SMALL (NEG); GLUCOSE,URINE NEG (NEG); KETONE, URINE NEG (NEG); MUCUS URINE FEW /lpf (OCC); NITRITE,URINE NEG (NEG); PH, URINE 6.5 (5.0-8.5); SQUAMOUS EPITHELIAL CELL URINE <1 /hpf (0-5); URINE COLOR LIGHT-YELLOW (YELLW/STRAW)
[2016-09-16 00:19] LABS: COMMENT (UR) CULT NOT INDICATED; CULTURE IF INDICATED CULT NOT INDICATED
[2016-09-16 00:44] LABS: BANDS 4 % (0-6); BASOPHILS 2 % (0-2); CORRECTED NUCLEATED RBC 1 /100 WBC (0-0); EOSINOPHILS 1 % (0-4); NEUTROPHIL # MANUAL DIFF 11.8 TH/MM3 (1.8-7.7); PLATELET ESTIMATE SMEAR NORMAL (NORMAL); PLATELET MORPHOLOGY NORMAL (NORMAL); POLYS (SEG NEUTROPHILS) 75 % (16-70); PROMYELOCYTES 1 % (0-0); SCAN/DIFF FINAL DIFF MANUAL; WBC DIFF SAMPLE 100
[2016-09-16 00:45] LABS: ACANTHOCYTES OCC (NORMAL); OVALOCYTES 1+ (NORMAL)
[2016-09-16 01:28] LABS: MRSA PCR NEGATIVE (NEGATIVE); STAPH AUREUS PCR POSITIVE (NEGATIVE)
[2016-09-16] MEDS ORDERED: OXYTOCIN 30 UNITS-500ML PREMIX 500 ML IV SCH (03:00)
--- NOTE | 2016-09-16 03:05 | PD.LABORPN ---
Subjective Subjective Sitting comfortably in bed; no concerns Objective Vital Signs Vital Signs Date Time Temp Pulse Resp B/P Pulse Ox O2 Delivery O2 Flow Rate FiO2 09/15/16 23:30 98.6 18 09/15/16 23:22 107 108/63 09/15/16 22:43 98.7 90 117/71 Objective Pelvic Exam: Cervix: Soft, posterior Dilatation: 2-3 Effacement: 70 Station: 50 Presentation: -2 Membranes: SROM @ ~2130 on 09/15/16 Uterine Contractions: Irregular every 4-10 mins FHT's: Category: 1 Baseline: 140 Reactive: Y Variability: moderate Decels: N Assessment/Plan Problem List: (1) Normal labor Assessment and Plan 22 yo at 37/2 weeks presenting in labor with SROM * Category 1 tracing, reassuring * Continue routine labor care * Fentanyl PRN for pain * Start Pitocin 1 unit/min given failure to make change in ~4 hours; do not titrate up for now given status dw Dr. Carolina Serrano, Dr. Rafa Doty,Mike Cervantes MD R1 Sep 16, 2016 03:05
--- NOTE | 2016-09-16 05:04 | PD.LABORPN ---
Subjective Subjective Called by the nursing staff for decreased variability; 26-year-old 4 para 3 previous with her second baby last baby born by vaginal who presented with spontaneous rupture of membranes clear fluid Presently the patient does not desire an epidural anything for pain On her side oxygen infusing bolus of 500 cc given Objective Vital Signs Vital Signs Date Time Temp Pulse Resp B/P Pulse Ox O2 Delivery O2 Flow Rate FiO2 09/16/16 04:00 87 95/53 09/16/16 03:22 18 09/16/16 03:18 97.8 92 115/75 09/16/16 02:31 82 103/53 09/15/16 23:30 98.6 18 09/15/16 23:22 107 108/63 09/15/16 22:43 98.7 90 117/71 Objective Scalp stimulation done baseline is 140 with scalp stimulation acceleration acoustic stimulation done positive acceleration application of a scalpel electrode with elevations up to 180 with the application of the scalp electrode from a baseline of 140 Pelvic Exam: Cervix: [-] Posterior Dilatation: [-] 3-4 cm dilated Effacement: [-] 75% effaced Station: [-] -2 Presentation: [-] Vertex Membranes: [ ruptured] clear Uterine Contractions: [-] Irregular Pitocin previously started at 1 milliunit and kept at that level presently discontinued for evaluation FHT's: Category: [-] 1 Baseline: [-] 140 Reactive: [-] + Positive accelerations with scalp electrode with scalp stimulation and acoustic stimulation Variability: [-] Moderate variability Decels: [-] An occasional small V-shaped variables Assessment/Plan Problem List: (1) Normal labor Assessment and Plan #2 after section low segment transverse incision Presently category 1 tracing Plan; monitor the patient closely IUPC scalp electrode has been applied Pitocin has been discontinued which was previously at 1 milliunit Patient on left tilt IV fluids of increased O2 has been applied Reevaluation Li Rooney MD Sep 16, 2016 05:04
--- NOTE | 2016-09-16 05:48 | PD.LABORPN ---
Objective Vital Signs Vital Signs Date Time Temp Pulse Resp B/P Pulse Ox O2 Delivery O2 Flow Rate FiO2 09/16/16 05:01 18 09/16/16 05:00 80 109/52 09/16/16 04:15 18 09/16/16 04:00 87 95/53 09/16/16 03:22 18 09/16/16 03:18 97.8 92 115/75 09/16/16 02:31 82 103/53 09/15/16 23:30 98.6 18 09/15/16 23:22 107 108/63 09/15/16 22:43 98.7 90 117/71 Objective Pelvic Exam: Cervix: [-] Dilatation: [-] Effacement: [-] Station: [-] Presentation: [-] Membranes: [intact or ruptured] Uterine Contractions: [-] FHT's: Category: [-] Now a category 1 tracing Baseline: [-] 140 Reactive: [-] Reactive with accelerations to 155 Variability: [-] Moderate fivc-ye-jhic variability Decels: [-] 0 Assessment/Plan Problem List: (1) Normal labor Assessment and Plan Category 1 tracing Contraction pattern has spaced out Plan; we'll restart Pitocin at 1 milliunit It was previously discussed previously discussed risks and benefits of Pitocin With a Li Rooney MD Sep 16, 2016 05:48
[2016-09-16] MEDS ORDERED: PREN29TA PO (05:57)
--- NOTE | 2016-09-16 06:41 | PD.LABORPN ---
Objective Vital Signs Vital Signs Date Time Temp Pulse Resp B/P Pulse Ox O2 Delivery O2 Flow Rate FiO2 09/16/16 06:02 95 119/76 09/16/16 05:01 18 09/16/16 05:00 80 109/52 09/16/16 04:15 18 09/16/16 04:00 87 95/53 09/16/16 03:22 18 09/16/16 03:18 97.8 92 115/75 09/16/16 02:31 82 103/53 09/15/16 23:30 98.6 18 09/15/16 23:22 107 108/63 09/15/16 22:43 98.7 90 117/71 Objective Called by the nurses patient having variable decelerations, presently only on 1 milliunit of Pitocin Pitocin once again discontinued fluids increased positional change Patient examined: 4-5 cm dilated baby not tolerating Pitocin Have recommended to the patient that we do a repeat section secondary to intolerance to labor procedure indications and complications discussed with the patient Patient is declining and refusing as she does not want a" needle in her back" We'll have anesthesia come and talk with the patient Will do an amnioinfusion as the variable decelerations may be secondary to cord compression However the contractions spaced out without the Pitocin FHT's: Category: [-] Baseline: [-] Reactive: [-] Variability: [-] Decels: [-] Assessment/Plan Problem List: (1) Normal labor Li Rooney MD Sep 16, 2016 06:41
--- NOTE | 2016-09-16 07:12 | PD.LABORPN ---
Subjective Subjective Have once again recommended a section for the patient she continues to decline Amnioinfusion was begun as the variable decelerations indicating cord compression She is presently miracle on her own every 4-5 minutes Positive acceleration with acoustic stimulation and scalp stimulation Will have anesthesiologists come and speak with the patient in regards to a spinal anesthesia/epidural to answer any questions she may have Pitocin is discontinued earlier Have discussed if she continues to decline section with continued persistent variable decelerations after a section has been recommended The baby may sustain neurologic injury. Objective Vital Signs Vital Signs Date Time Temp Pulse Resp B/P Pulse Ox O2 Delivery O2 Flow Rate FiO2 09/16/16 06:02 95 119/76 09/16/16 05:01 18 09/16/16 05:00 80 109/52 09/16/16 04:15 18 09/16/16 04:00 87 95/53 09/16/16 03:22 18 09/16/16 03:18 97.8 92 115/75 09/16/16 02:31 82 103/53 09/15/16 23:30 98.6 18 09/15/16 23:22 107 108/63 Objective Pelvic Exam: Cervix: [-] Dilatation: [-] Effacement: [-] Station: [-] Presentation: [-] Membranes: [intact or ruptured] Uterine Contractions: [-] FHT's: Category: [-] Baseline: [-] Reactive: [-] Variability: [-] Decels: [-] Assessment/Plan Problem List: (1) Normal labor Li Rooney MD Sep 16, 2016 07:12
--- NOTE | 2016-09-16 07:23 | PD.LABORPN ---
Subjective Subjective contractions now q 2 min Anesthesia talking with the patient Dr. Mathew now the attending on duty Objective Vital Signs Vital Signs Date Time Temp Pulse Resp B/P Pulse Ox O2 Delivery O2 Flow Rate FiO2 09/16/16 07:10 86 110/71 09/16/16 07:09 98.3 16 09/16/16 06:02 95 119/76 09/16/16 05:01 18 09/16/16 05:00 80 109/52 09/16/16 04:15 18 09/16/16 04:00 87 95/53 09/16/16 03:22 18 09/16/16 03:18 97.8 92 115/75 09/16/16 02:31 82 103/53 09/15/16 23:30 98.6 18 Objective Pelvic Exam: Cervix: [-] Dilatation: [-] Effacement: [-] Station: [-] Presentation: [-] Membranes: [intact or ruptured] Uterine Contractions: [-] FHT's: Category: [-] Baseline: [-] Reactive: [-] Variability: [-] Decels: [-] Assessment/Plan Problem List: (1) Normal labor Li Rooney MD Sep 16, 2016 07:23
--- NOTE | 2016-09-16 07:29 | PD.LABORPN ---
Subjective Subjective Patient seen and examined this morning. She is currently laboring. There are variable decelerations with each contraction. Amnioinfusion in process at this time. Informed mother that the current recommendation is likely . She is refusing a as she does not want a Spinal Block. It was explained to her that in the risk of an emergent she would have to be intubated. She agrees with speaking and anesthesiology about her options at this time. Positive stimulation with scalp scraping as well as stimulator (acoustic stimulation). Patient is currently miracle on her own as the Pitocin has been stopped. (Lukasz Lauren MD R2) Objective Vital Signs Vital Signs Date Time Temp Pulse Resp B/P Pulse Ox O2 Delivery O2 Flow Rate FiO2 09/16/16 06:02 95 119/76 09/16/16 05:01 18 09/16/16 05:00 80 109/52 09/16/16 04:15 18 09/16/16 04:00 87 95/53 09/16/16 03:22 18 09/16/16 03:18 97.8 92 115/75 09/16/16 02:31 82 103/53 09/15/16 23:30 98.6 18 09/15/16 23:22 107 108/63 Objective Pelvic Exam: Cervix: Soft Dilatation: 5 Effacement: 80% Station: -2 Presentation: vertex Membranes: [SROM] Uterine Contractions: 4-5 Fluid: no meconium stain FHT's: Category: 2 Baseline:150 Reactive: 160 Variability: moderate Decels: variable (Lukasz Lauren MD R2) Assessment/Plan Problem List: (1) Normal labor (2) 37 weeks gestation of (3) Intrauterine Assessment and Plan 26-year-old at 37/2 with spontaneous rupture membrane currently laboring 1. Intrauterine : GBS negative -Continuous heart tracing: Was category 2 started amnioinfusion, now Category 1 -Continuous monitoring contractions -Amnioinfusion -Contacting anesthesia to discuss options in case of need for -Positive stimulation with scalp scratching and stimulator (Lukasz Lauren MD R2) Assessment and Plan Patient seen, examined, and discussed with Dr Lauren. I agree with assessment and management as documented and discussed with me. Category 1 tracing after initiation of amnioinfusion. Will monitor closely. Patient understands that a may be needed for both her and her baby's safety. (Phyllis Khan MD) Lukasz Lauren MD R2 Sep 16, 2016 07:29 Phyllis Khan MD Sep 16, 2016 15:53
--- NOTE | 2016-09-16 08:40 | PD.LABORPN ---
Subjective Subjective Patient comfortable feeling contractions more spaced apart since pitocin was held. Counseled extensively and voiced understanding of our concern for repeated variable decelerations. No fever, chills, sob. (Jg Escudero MD R2) Objective Vital Signs Vital Signs Date Time Temp Pulse Resp B/P Pulse Ox O2 Delivery O2 Flow Rate FiO2 09/16/16 08:12 86 16 99/55 09/16/16 07:10 86 110/71 09/16/16 07:09 98.3 16 09/16/16 06:02 95 119/76 09/16/16 05:01 18 09/16/16 05:00 80 109/52 09/16/16 04:15 18 09/16/16 04:00 87 95/53 09/16/16 03:22 18 09/16/16 03:18 97.8 92 115/75 09/16/16 02:31 82 103/53 Objective Pelvic Exam: Cervix: Soft Dilatation: 6-7 Effacement: 80% Station: -2 Presentation: vertex Membranes: [SROM] Uterine Contractions: q4-7 minutes FHT's: Category: 2 Baseline:145 Reactive: yes Variability: minimal to moderate Decels: variable (Jg Escudero MD R2) Assessment/Plan Problem List: (1) Normal labor (2) 37 weeks gestation of (3) Intrauterine Assessment and Plan IUP Category 2 tracing with repeated variable decels and minimal- moderate variability. Cervical dilated to 6-7 cm Counseled patient our concern with the FHT. Patient acknowledged our concern, including risk of neurological damage and possible adverse outcomes with continuing labor. All questions answered. Continue amnioinfusion We are reassured with the cervical change to 6-7 dilation. We will continue to monitor continuously and proceed with vaginal delivery if she is able to tolerate labor. NAPOLEON Khan and Dr. Craig (Jg Escudero MD R2) Assessment and Plan Patient seen, examined, and discussed with Dr Alexander Escudero. I agree with assessment and management as documented and discussed with me. (Phyllis Khan MD ) Jg Escudero MD R2 Sep 16, 2016 08:40 Phyllis Khan MD Sep 16, 2016 15:54
[2016-09-16] MEDS: LACTATED RINGER'S 1000 ML INJ 1,000 ML IV SCH (09:16)
[2016-09-16 12:27] LABS: BLOOD GAS BASE EXCESS -0.7 mmol/L (-2-2); BLOOD GAS O2 HGB SATURATION 44 % (90-100); CORD BLOOD GAS HCO3 25 mmol/L (21-29); CORD BLOOD GAS PCO2 48 mmHG (34-78); CORD BLOOD GAS PH 7.33 (7.14-7.42)
[2016-09-16 12:28] LABS: CORD BLOOD GAS PO2 21 mmHG (3.0-40.0); DRAW SITE CORD BLOOD; STAT NO
--- NOTE | 2016-09-16 12:34 | PD.OB.DELI ---
Delivery Date: Sep 16, 2016 Anesthesia: None Episiotomy: None Vaginal Delivery: Normal, Spontaneous, Presentation: Occiput anterior, Vertex Nuchal Cord: None Delayed cord clamping (45 sec): Yes Infant: Female, Single One Minute : 9 Five Minute : 9 Weight: 2380 Care: Suctioned, Spontaneous crying, Responded to stimulation Placenta: Spontaneous delivery, Intact, 3 vessel cord Laceration: No lacerations Additional Information Cord gas obtained results pending. Baby delivered spontaneously. Placenta delivered within an appropriate time frame. No tears noted following delivery. Dr. Khan present for delivery (Lukasz Lauren MD R2) Additional Information Attending note: I was present for entire vaginal delivery. is thriving. Apgars 9 and 9. (Phyllis Khan MD) Lukasz Lauren MD R2 Sep 16, 2016 12:34 Phyllis Khan MD Sep 16, 2016 15:55
[2016-09-16] MEDS ORDERED: ALUMINUM/MAGNESIUM/SIMETH 30 ML CUP PO PRN (12:45)
[2016-09-16] MEDS ORDERED: IBUPROFEN 600 MG TAB PO PRN (12:45)
[2016-09-16] MEDS ORDERED: SODIUM CHLORIDE 0.9% FLUSH 5 ML FLUSH IV PRN (12:45)
[2016-09-16] MEDS ORDERED: DOCUSATE SODIUM 50 MG/SENNA 8.6 MG TAB PO PRN (12:45)
[2016-09-16] MEDS ORDERED: ZOLPIDEM TARTRATE 5 MG TAB PO PRN (12:45)
[2016-09-16] MEDS ORDERED: BENZOCAINE 20% TOPICAL SPRAY 60 ML CAN TOPICAL PRN (12:45)
[2016-09-16] MEDS ORDERED: WITCH HAZEL 50%/GLYCERIN 12.5% 40 PAD JAR TOPICAL PRN (12:45)
[2016-09-16] MEDS ORDERED: ACETAMINOPHEN 325 MG TAB PO PRN (12:45)
[2016-09-16] MEDS ORDERED: ONDANSETRON ODT 4 MG TAB PO PRN (12:45)
[2016-09-16] MEDS ORDERED: DIPHTH/TETANUS/ACEL PERTUSSIS (BOOSTER) 0.5 ML VIAL/PFS IM ONE (16:00)
[2016-09-16] MEDS ORDERED: MEASLES, MUMPS, RUBELLA VACCINE 0.5 ML VIAL SQ ONE (16:00)
[2016-09-16] MEDS ORDERED: SODIUM CHLORIDE 0.9% FLUSH 5 ML FLUSH IV SCH (21:00)
--- NOTE | 2016-09-17 07:43 | HHI.OB ---
Subjective Post Day: 1 Remarks day # 1. AFVSS overnight. Pain controlled. Decreased lochia. Denies dysuria. No breast tenderness. She is feeding the baby via Breast. Appetite good. No nausea or vomiting. Positive flatus. Negative bowel movement. Ambulating well. Denies calf pain, shortness of breath, or cough. Otherwise, she is doing well this morning and has no other complaints. (Lukasz Lauren MD R2) Remarks Patient seen and evaluated with resident under direct supervision, agree with assessment and plan. (Michel Edmonds MD) Objective Vitals/I&O Vital Signs Date Time Temp Pulse Resp B/P Pulse Ox O2 Delivery O2 Flow Rate FiO2 09/16/16 20:55 99.2 109 18 107/61 09/16/16 14:30 98.6 09/16/16 14:30 96 18 111/65 09/16/16 14:00 18 09/16/16 13:45 97 119/72 09/16/16 13:30 93 107/65 09/16/16 13:30 18 09/16/16 13:15 89 18 110/65 09/16/16 13:00 97 118/75 09/16/16 12:51 99 122/73 09/16/16 12:35 98.5 18 09/16/16 12:32 110 126/81 09/16/16 12:01 98 111/59 09/16/16 11:15 16 09/16/16 11:15 98.5 09/16/16 11:00 116 112/61 09/16/16 10:03 98 123/78 09/16/16 10:02 16 09/16/16 09:13 98.4 09/16/16 09:13 16 09/16/16 09:00 108 114/78 09/16/16 08:12 86 16 99/55 Objective Remarks GENERAL: Well-nourished, well-developed patient. CARDIOVASCULAR: Regular rate and rhythm without murmurs, gallops, or rubs. RESPIRATORY: Breath sounds equal bilaterally. No accessory muscle use. ABDOMEN/GI: Abdomen soft, non-tender. Fundus: Firm, non-tender at umbilicus. GENITOURINARY: Light to moderate bleeding. EXTREMITIES: No cyanosis or edema, non-tender, without signs of DVT. Medications and IVs Current Medications Medications (Trade) Dose Ordered Sig/Mikel Route Start Time Stop Time Status Last Admin Lactated Ringer's 1,000 ml @ 125 mls/hr Q8H IV 09/15/16 23:02 09/16/16 09:16 Lactated Ringer's 1,000 ml @ 3,000 mls/hr Q20M PRN IV 09/15/16 23:02 Sodium Chloride 500 ml @ 1,000 mls/hr ONCE PRN IV 09/15/16 23:15 09/22/16 23:14 (NS 1000 ml Inj) 1,000 ml @ 100 mls/hr Q10H PRN IV 09/15/16 23:22 09/16/16 08:33 (Zofran Inj) 4 mg Q6H PRN IV 09/15/16 23:15 (fentaNYL INJ) 50 mcg Q1H PRN IV PUSH 09/15/16 23:15 09/16/16 11:41 (fentaNYL INJ) 100 mcg Q1H PRN IV PUSH 09/15/16 23:15 Mineral Oil 10 ml 10 ml UNSCH PRN TOPICAL 09/15/16 23:15 (Pitocin 30 Units-NS 500 ml Premix) 500 ml @ 0 mls/hr TITRATE IV 09/16/16 03:00 (NS Flush) 2 ml BID IV 09/16/16 21:00 (NS Flush) 2 ml UNSCH PRN IV 09/16/16 12:45 (Tylenol) 650 mg Q4H PRN PO 09/16/16 12:45 (Motrin) 600 mg Q6H PRN PO 09/16/16 12:45 (Americaine 20% Top Spr) 1 spray Q4H PRN TOPICAL 09/16/16 12:45 09/16/16 17:37 (Tucks Pads) 1 applic QID PRN TOPICAL 09/16/16 12:45 09/16/16 17:37 (Rachel-Colace) 2 tab Q12H PRN PO 09/16/16 12:45 (Ambien) 5 mg HS PRN PO 09/16/16 12:45 (Mag-Al Plus Susp Liq) 15 ml Q8H PRN PO 09/16/16 12:45 (Zofran Odt) 4 mg Q6H PRN PO 09/16/16 12:45 (Lukasz Lauren MD R2) Assessment/Plan Problem List: (1) Normal labor (2) 37 weeks gestation of (3) Intrauterine Assessment and Plan 26 y/o female who is PPD# 1 s/p . -Continue routine care. -Percocet and Motrin PRN pain. -Encouraged OOB. Advised pelvic rest for 6 wks. -Will need a f/u appt. within 6 wks. -Re: ctrl, she currently undecided. -D/c in 1-2 more days. [facility] OB attending Discharge Planning Discharge next one to 2 days (Lukasz Lauren MD R2) Lukasz Lauren MD R2 Sep 17, 2016 07:43 Michel Edmonds MD Sep 17, 2016 09:55
[2016-09-17 08:23] VITALS: BP 97/59; PULSE 87; RESP 18; TEMP 98.1
[2016-09-17 19:47] VITALS: BP 97/54; PULSE 102; RESP 18; TEMP 99
[2016-09-17] MEDS: LACTATED RINGER'S 1000 ML INJ 1,000 ML IV SCH (23:02)
[2016-09-18] MEDS ORDERED: IBUP-232 PO (06:36)
[2016-09-18] MEDS ORDERED: SENN1TAB PO (06:36)
--- NOTE | 2016-09-18 06:37 | HHI.DCPOC ---
Discharge Care Plan Diagnosis: (1) Normal labor (2) Vaginal delivery (3) care following vaginal delivery Report Symptoms to Your Doctor -Temperate above 100.5 degrees -Redness, of incision or excessive or foul smelling drainage -Unusual pain or calf pain -Increased vaginal bleeding -Painful or difficulty urinating -Feelings of extreme sadness or anxiety after 2 weeks Follow up with OB in 6 weeks Pelvic Rest for 6 weeks Goals to Promote Your Health * To prevent worsening of your condition and complications * To maintain your health at the optimal level Directions to Meet Your Goals Take your medications as prescribed Follow your dietary instruction Follow activity as directed Ensure plenty of rest for recovery Drink fluids for hydration Keep your appointments as scheduled Take your immunizations and boosters as scheduled If your symptoms worsen call your PCP, if no PCP go to Urgent Care Center or Emergency Room Smoking is Dangerous to Your Health. Avoid second hand smoke Call the 24-hour crisis hotline for domestic abuse at Lukasz Lauren MD R2 Sep 18, 2016 06:37
--- NOTE | 2016-09-18 07:31 | HHI.OB ---
Subjective Post Day: 2 Remarks day # 2. AFVSS overnight. Pain controlled. Decreased lochia. Denies dysuria. No breast tenderness. She is feeding the baby via breast. Appetite good. No nausea or vomiting. Positive flatus. Negative bowel movement. Ambulating well. Denies calf pain, shortness of breath, or cough. Otherwise, she is doing well this morning and has no other complaints. Objective Vitals/I&O Vital Signs Date Time Temp Pulse Resp B/P Pulse Ox O2 Delivery O2 Flow Rate FiO2 09/17/16 19:47 99.0 102 18 97/54 09/17/16 08:23 87 18 97/59 09/17/16 08:23 98.1 Objective Remarks GENERAL: Well-nourished, well-developed patient. CARDIOVASCULAR: Regular rate and rhythm without murmurs, gallops, or rubs. RESPIRATORY: Breath sounds equal bilaterally. No accessory muscle use. ABDOMEN/GI: Abdomen soft, non-tender. Fundus: Firm, non-tender at umbilicus. GENITOURINARY: Light to moderate bleeding. EXTREMITIES: No cyanosis or edema, non-tender, without signs of DVT. Medications and IVs Current Medications Medications (Trade) Dose Ordered Sig/Mikel Route Start Time Stop Time Status Last Admin Lactated Ringer's 1,000 ml @ 125 mls/hr Q8H IV 09/15/16 23:02 09/16/16 09:16 Lactated Ringer's 1,000 ml @ 3,000 mls/hr Q20M PRN IV 09/15/16 23:02 Sodium Chloride 500 ml @ 1,000 mls/hr ONCE PRN IV 09/15/16 23:15 09/22/16 23:14 (NS 1000 ml Inj) 1,000 ml @ 100 mls/hr Q10H PRN IV 09/15/16 23:22 09/16/16 08:33 (Zofran Inj) 4 mg Q6H PRN IV 09/15/16 23:15 (fentaNYL INJ) 50 mcg Q1H PRN IV PUSH 09/15/16 23:15 09/16/16 11:41 (fentaNYL INJ) 100 mcg Q1H PRN IV PUSH 09/15/16 23:15 Mineral Oil 10 ml 10 ml UNSCH PRN TOPICAL 09/15/16 23:15 (Pitocin 30 Units-NS 500 ml Premix) 500 ml @ 0 mls/hr TITRATE IV 09/16/16 03:00 (NS Flush) 2 ml BID IV 09/16/16 21:00 (NS Flush) 2 ml UNSCH PRN IV 09/16/16 12:45 (Tylenol) 650 mg Q4H PRN PO 09/16/16 12:45 (Motrin) 600 mg Q6H PRN PO 09/16/16 12:45 (Americaine 20% Top Spr) 1 spray Q4H PRN TOPICAL 09/16/16 12:45 09/16/16 17:37 (Tucks Pads) 1 applic QID PRN TOPICAL 09/16/16 12:45 09/16/16 17:37 (Rachel-Colace) 2 tab Q12H PRN PO 09/16/16 12:45 (Ambien) 5 mg HS PRN PO 09/16/16 12:45 (Mag-Al Plus Susp Liq) 15 ml Q8H PRN PO 09/16/16 12:45 (Zofran Odt) 4 mg Q6H PRN PO 09/16/16 12:45 Assessment/Plan Problem List: (1) Normal labor (2) 37 weeks gestation of (3) Intrauterine Assessment and Plan 26 y/o female who is PPD# 2 s/p . -Continue routine care. -Percocet and Motrin PRN pain. -Encouraged OOB. Advised pelvic rest for 6 wks. -Will need a f/u appt. within 6 wks. -Re: ctrl, she requests IUD to be placed in 6 weeks. -D/c plan for today [facility] OB attending Discharge Planning Discharge home today Lukasz Lauren MD R2 Sep 18, 2016 07:31
[2016-09-18 07:50] VITALS: BP 93/55; PULSE 82; RESP 18; TEMP 98.9
[2016-10-26] MEDS ORDERED: SPRI28TA PO (15:13)
[2017-01-06] MEDS ORDERED: PARAIUD IL (14:46)
[2017-01-30] MEDS ORDERED: METR500T10 PO (15:40)
[2017-02-01] MEDS ORDERED: CLIN1CAP6 PO (12:11)
== END 2016-09-18 12:05 | disposition home or self-care (01) | DRG 775 ==
LOC: HOBED 22:23 → H2EB 22:48 → H1EA 09-16 14:28
PROVIDERS: ADMIT Obstetrics & Gynecology; ATTEND Obstetrics & Gynecology
PROC: 10E0XZZ Delivery of Products of Conception, External Approach (ICD-10-PCS; principal; 2016-09-16)
PROC: 10H07YZ Insertion of Other Device into Products of Conception, Via Natural or Artificial Opening (ICD-10-PCS; 2016-09-16)
PROC: 3E0E7GC Introduction of Other Therapeutic Substance into Products of Conception, Via Natural or Artificial Opening (ICD-10-PCS; 2016-09-16)
DX: O42.02 Full-term premature rupture of membranes, onset of labor within 24 hours of rupture (principal); O34.219 Maternal care for unspecified type scar from previous cesarean delivery; O76 Abnormality in fetal heart rate and rhythm complicating labor and delivery; O69.2XX0 Labor and delivery complicated by other cord entanglement, with compression, not applicable or unspecified; Z37.0 Single live birth; Z3A.37 37 weeks gestation of pregnancy
CPT/HCPCS: 81001; 82805; 84112; 85007; 85027; 87640; 87641; 99284; J3010; J7030; J7120